=== PATIENT | male | born 1950 | race Caucasian/White ===

== ENCOUNTER 2018-10-06 06:32 | Day surgery (SDC) | payer OTHER | END 2018-10-06 11:55 | disposition home or self-care (01) | LOC: AMB-ENDOS 06:32 | DX: D12.2 Benign neoplasm of ascending colon (principal); K64.1 Second degree hemorrhoids ==

== ENCOUNTER → 2019-11-23 | Day surgery (SDC) | payer OTHER | END | disposition home or self-care (01) | LOC: ADM 11-16 12:30 → CIR.AMB 06:17 | PROVIDERS: ATTEND Colon & Rectal Surgery | DX: D12.0 Benign neoplasm of cecum (principal); D12.2 Benign neoplasm of ascending colon; K64.1 Second degree hemorrhoids; Z20.828 Contact with and (suspected) exposure to other viral communicable diseases ==